=== PATIENT | male | born 1950 | race Caucasian/White ===

== ENCOUNTER 2021-04-05 13:23 | Emergency (ER) | payer OTHER, SELFPAY ==
--- NOTE | 2021-04-05 13:55 | PC.NURSE ---
Pt. pul ox 99% on RA, RR 40, started on 2L by nasal cannula. Pt. coached to slow RR, provided reassurance and information of POC. Pt. HR went from 130s to 110.
[2021-04-05 13:59] VITALS: BP 163/94; PULSE 130; RESP 33; TEMP 36.6; O2SAT 99
[2021-04-05 14:03] VITALS: PULSE 125
--- NOTE | 2021-04-05 14:09 | ED.SOB ---
HPI - SOB/Dyspnea General Chief Complaint: Unspecified Stated Complaint: breathing fast Time Seen by Provider: 04/05/21 13:46 History of Present Illness HPI Narrative: 71 yo male presents to the ED for breathing fast. He says that he was concerned because he was breathing to fast. He demnstrates by sucking air in through his nose rapidly. He says that this has stopped and he feels great. He notes that his heart is beating fast, but says that it always is and that's just him. He is feeling better and eager fr discharge. He denies and CP, SOB, fever, cough, congestion. Related Data Home Medications Medication Instructions Recorded Confirmed No Home Medications 04/05/21 04/05/21 Allergies Allergy/AdvReac Type Severity Reaction Status Date / Time No Known Allergies Allergy Verified 04/05/21 14:02 Review of Systems Review of Systems: All systems reviewed & are unremarkable except as noted in HPI and below Constitutional: Constitutional: Denies chills, Denies fever(s) and Denies weakness ENT: Denies nasal congestion Cardiovascular: Cardiovascular: Denies chest pain Respiratory: Respiratory: Denies dyspnea Gastrointestinal: Gastrointestinal: Reports no additional gastrointestinal complaints Genitourinary: Genitourinary: Reports no additional male genitourinary complaints Neurologic: Reports system reviewed and no additional complaints, except as documented [facility] Past Medical History Medical History (Updated 04/05/21 @ 17:11 by Abhay Somers MD) Essential hypertension Family History Family History (Updated 06/22/16 @ 23:19 by DOCTOR UNKNOWN) Mother Family history of malignant neoplasm of breast in first degree relative Social History Social History Smoking status: Light tobacco smoker Second hand tobacco smoke exposure: No Alcohol intake: current Gender identity (if verbalized by the patient): Male Exam Const: General: healthy appearing, no acute distress and alert Orientation/consciousness: patient oriented x3 HENMT: Head: normal to inspection Neck: Neck: normal visual inspection Chest: Chest palpation & inspection: no tenderness Resp: Effort & Inspection: normal respiratory effort Auscultation: clear to auscultation bilaterally, no rales, no rhonchi and no wheezes Cardio: Jugular venous distension: no JVD Rate: tachycardic Rhythm: regular rhythm Heart sounds: no murmurs GI: Inspection: non-distended GI Palp: Yes Soft to palpation and No Tenderness to palpation present (GI) Skin: General skin exam: normal color Neuro: General: patient oriented x3, moves all extremities, no focal motor deficits and CN's II-XI intact bilaterally Speech: normal speech Gait exam (Neuro): Normal gait present Extrem: General: normal to inspection and no edema Psych: Appearance: well kempt Affect: Anxious affect present Course Vital Signs Vital signs: Vital Signs Temperature 36.6 C 04/05/21 13:59 Pulse Rate 130 H 04/05/21 13:59 Respiratory Rate 33 H 04/05/21 13:59 Blood Pressure 163/94 H 04/05/21 13:59 Pulse Oximetry 99 04/05/21 13:59 Temperature 36.6 C 04/05/21 13:59 Pulse Rate 120 H 04/05/21 14:16 Respiratory Rate 18 04/05/21 14:16 Blood Pressure 166/91 H 04/05/21 14:16 Pulse Oximetry 98 04/05/21 14:16 MDM - SOB/Dyspnea MDM Narrative Medical decision making narrative: It is very difficult to figure out exactly what his complaint is, but he reports that it has completely resolved and there is nothing else that he would like evaluated. Medical Records Attestation: I reviewed the patient's medical records. Discharge Plan Discharge Clinical Impression: Tachypnea Patient Disposition: Home, Self-Care Condition: Stable Instructions: Dyspnea (ED) Prescriptions: No Action No Home Medications RF: 0 Follow-up/Referrals: PHYSICIAN NOT ON STAFF,NONSTAFF [Primary Care Provider] -
[2021-04-05 14:16] VITALS: BP 166/91; PULSE 120; RESP 18; O2SAT 98
--- NOTE | 2021-04-05 15:57 | ECG_ITS ---
Measurements Intervals [place] Rate: 125 P: 61 [place]: 147 QRS: 55 QRSD: 82 T: 47 QT: 280 QTc: 404 Interpretive Statements SINUS TACHYCARDIA MINIMAL Q WAVES- INFERIOR LEADS ABNORMAL ECG Electronically Signed On 04-05-2021 16:12:38 CDT by Shaan Taylor D.O.
== END 2021-04-05 14:18 | disposition home or self-care (01) ==
PROVIDERS: Emergency Provider Emergency Medicine
DX: R06.82 Tachypnea, not elsewhere classified (principal)
CPT/HCPCS: 93005; 99283

== ENCOUNTER 2021-08-14 13:54 | Emergency (ER) | payer OTHER, SELFPAY ==
--- NOTE | ~2021-08-14 | XR_ITS ---
XR chest 1V portable 08/14/2021 16:58 Indication: Dyspnea. Hypertension. Procedure: AP portable chest Comparison: No prior studies for comparison. Findings: Bibasilar atelectasis. Heart size normal. No focal pneumonia, edema, pleural effusion or pn eumothorax. Impression: 1: Bibasilar atelectasis. Reviewed, dictated and finalized at location A. Impression: 1: Bibasilar atelectasis.
[2021-08-14 14:00] VITALS: BP 130/75; PULSE 112; RESP 26; TEMP 36.8; O2SAT 96
[2021-08-14 15:54] VITALS: BP 182/89; PULSE 98; O2SAT 96
--- NOTE | 2021-08-14 16:46 | ECG_ITS ---
Measurements Intervals [place] Rate: 73 P: 50 VT: 157 QRS: 46 QRSD: 81 T: 34 QT: 358 QTc: 395 Interpretive Statements SINUS RHYTHM NORMAL ECG Electronically Signed On 08-14-2021 20:08:21 CDT by Shaan Taylor D.O.
[2021-08-14 16:50] VITALS: PULSE 82
[2021-08-14] MEDS: ASPIRIN 81 MG CHEWABLE TABLET 324 MG PO (17:09)
[2021-08-14] MEDS: LORazepam INJ (*CRX) 2 MG/ML VIAL 0.5 MG IV PUSH (17:09)
[2021-08-14 17:31] LABS: Basophils Absolute Auto 0.1 K/mm3 (0.0-0.1); Basophils Percent Auto 0.4 % (0.2-1.2); Eosinophils Absolute Auto 0.2 K/mm3 (0-0.3); Eosinophils Percent Auto 1.6 % (0-4.4); Hematocrit 48.2 % (42.0-52.0); Hemoglobin 16.2 g/dL (14.0-18.0); Immature Granulocyte Percent A 0.9 % (0-0.5); Lymphocytes Absolute Auto 1.63 K/mm3 (0.9-3.2); Lymphocytes Percent Auto 14.5 % (18.3-44.2); Mean Corpuscular HGB Conc 33.6 g/dl (32-36); Mean Corpuscular Hemoglobin 30.9 pg (26-34); Mean Platelet Volume 9.7 fl (7.4-10.4); Monocytes Absolute Auto 1.1 K/mm3 (0.1-0.6); Monocytes Percent Auto 10.1 % (2.6-8.5); Neutrophils Absolute Auto 8.2 K/mm3 (1.3-6.7); Neutrophils Percent Auto 72.5 % (45.5-73.1); Platelet Count Result 218 k/mm3 (150-375); Red Blood Count 5.24 M/mm3 (4.6-6.20); Red Cell Distribution Width 13.4 % (11.5-14.5); White Blood Count 11.3 K/mm3 (4.5-10.0)
[2021-08-14 17:32] VITALS: BP 172/94; PULSE 82; RESP 28; O2SAT 97
[2021-08-14 17:40] LABS: INR 0.9; Prothrombin Time 11.6 Seconds (11.1-14.7)
[2021-08-14 17:52] LABS: Troponin I < 0.012 ng/mL (0.000-0.034)
[2021-08-14 18:02] VITALS: BP 181/90; PULSE 78; RESP 17; O2SAT 96
[2021-08-14 18:32] VITALS: BP 178/93; PULSE 76; RESP 22; O2SAT 97
--- NOTE | 2021-08-14 18:50 | PC.NURSE ---
PT WENT OVER TO NEIGHBOR PT'S SIDE OF THE ROOM AND BEGAN SPEAKING TO THE PT. HE THEN PULLED OUT HIS OWN IV AND BLOOD WAS DRIPPING ALL OVER THE FLOOR. PT THEN BEGAN TO DUNK HIS HANDS INTO THE HOPPER. I INFORMED THE PT THAT HE NEEDED TO USE A PROPER SINK AND NOT A PLACE WHERE WE DUMP BEDPANS. PT THOROUGHLY WASHED HANDS WITH SOAP AND WATER. DRESSING APPLIED TO FORMER IV SITE
[2021-08-14 19:27] LABS: Alanine Aminotransferase 42 U/L (4-50); Albumin Level 4.9 g/dL (3.5-5.1); Alkaline Phosphatase 91 U/L (38-126); Anion Gap 14 mmol/L (8-16); Aspartate Amino Transferase 42 U/L (17-59); Bilirubin,Total 0.5 mg/dL (0.2-1.3); Blood Urea Nitrogen 19 mg/dL (9-20); Calcium 9.2 mg/dL (8.4-10.2); Carbon Dioxide 22 mmol/L (22-30); Chloride 102 mmol/L (98-107); Estimated CRCL calculation 63 ml/min; Estimated Glomerular Filt Rate > 60; Glucose 100 mg/dL (65-110); Potassium 4.3 mmol/L (3.4-5.0); Sodium 138 mmol/L (137-145)
--- NOTE | 2021-08-14 19:37 | ED.GENADULT ---
HPI - General Adult General Chief complaint: Shortness of Breath/Dyspnea Stated complaint: SOB x 2 days Time Seen by Provider: 08/14/21 16:28 History of Present Illness HPI narrative: Patient is a 71-year-old gentleman who presents the emergency department with chief complaint of breathing heavy. Patient states that over the last several days he has noticed that his nose feels a little congested and reports that he has been taking deep breaths. Patient states that whenever he starts thinking about it he breathes harder patient denies fever denies chills denies cough. Patient states that he has no chest pain with this reports symptoms or not improved by anything or they worsened by anything Related Data Home Medications Medication Instructions Recorded Confirmed lisinopril 08/14/21 08/14/21 metoprolol succinate PO 08/14/21 sertraline mg 08/14/21 trazodone 08/14/21 Allergies Allergy/AdvReac Type Severity Reaction Status Date / Time No Known Allergies Allergy Verified 08/14/21 16:38 Review of Systems Review of Systems: A 10 system review of systems was completed on the patient and is negative except for what is stated in the HPI. Nursing and ancillary documentation was reviewed. [facility] Past Medical History Medical History Essential hypertension Family History Family History Mother Family history of malignant neoplasm of breast in first degree relative Social History Social History Smoking status: Light tobacco smoker Second hand tobacco smoke exposure: No Alcohol intake: current Gender identity (if verbalized by the patient): Male Exam Narrative: GENERAL: Well-appearing, well-nourished, and in no acute distress. HEAD: Normocephalic, atraumatic. EYES: PERRLA and EOMI. ENT: Nares clear, no rhinorrhea or epistaxis. Mucous membranes moist. NECK: Supple. CHEST: Clear to auscultation. No respiratory distress. HEART: Regular rate and rhythm. No murmur heard. Normal peripheral pulses. ABDOMEN: Soft, nontender, nondistended, normal active bowel sounds. EXTREMITIES: Normal range of motion. No edema. SKIN: Warm, dry, no rash. NEURO: No focal deficits. Alert and oriented x3. PSYCH: Normal mood and affect. Course Vital Signs Vital signs: Vital Signs Temperature 36.8 C 08/14/21 14:00 Pulse Rate 112 H 08/14/21 14:00 Respiratory Rate 26 H 08/14/21 14:00 Blood Pressure 130/75 08/14/21 14:00 Pulse Oximetry 96 08/14/21 14:00 Temperature 36.8 C 08/14/21 14:00 Pulse Rate 76 08/14/21 18:32 Respiratory Rate 22 H 08/14/21 18:32 Blood Pressure 178/93 H 08/14/21 18:32 Pulse Oximetry 97 08/14/21 18:32 Medical Decision Making Vital Signs Vital Signs: Vital Signs Temperature 36.8 C 08/14/21 14:00 Pulse Rate 112 H 08/14/21 14:00 Respiratory Rate 26 H 08/14/21 14:00 Blood Pressure 130/75 08/14/21 14:00 Pulse Oximetry 96 08/14/21 14:00 Temperature 36.8 C 08/14/21 14:00 Pulse Rate 76 08/14/21 18:32 Respiratory Rate 22 H 08/14/21 18:32 Blood Pressure 178/93 H 08/14/21 18:32 Pulse Oximetry 97 08/14/21 18:32 Lab Data Result diagrams: 08/14/21 17:07 08/14/21 17:07 Labs: Lab Results 08/14/21 08/14/21 08/14/21 Range/Units 17:07 17:07 17:07 WBC 11.3 H (4.5-10.0) K/mm3 RBC 5.24 (4.6-6.20) M/mm3 Hgb 16.2 (14.0-18.0) g/dL Hct 48.2 (42.0-52.0) % MCV 92.0 (80-100) fl MCH 30.9 (26-34) pg MCHC 33.6 (32-36) g/dl RDW 13.4 (11.5-14.5) % Plt Count 218 (150-375) k/mm3 MPV 9.7 (7.4-10.4) fl Immature Gran % (Auto) 0.9 H (0-0.5) % Neut % (Auto) 72.5 (45.5-73.1) % Lymph % (Auto) 14.5 L (18.3-44.2) % [place] % (Auto) 10.1 H (2.6-8.5) % Eos % (Auto) 1.6 (0-4.4)
== END 2021-08-14 19:38 | disposition left against medical advice (07) ==
PROVIDERS: Emergency Provider Emergency Medicine
DX: R06.00 Dyspnea, unspecified (principal); I10 Essential (primary) hypertension; F17.200 Nicotine dependence, unspecified, uncomplicated
CPT/HCPCS: 36415; 71045; 80053; 84484; 85025; 85610; 85730; 93005; 96374; 99284; A9270; J2060

== ENCOUNTER 2022-07-02 14:55 | Emergency (ER) | payer OTHER, SELFPAY ==
[2022-07-02] VITALS (10 sets, daily range): BP systolic 142–165; BP diastolic 68–101; PULSE 72–104; RESP 15–29; TEMP 37; O2SAT 96–100
--- NOTE | 2022-07-02 15:07 | ECG_ITS ---
Measurements Intervals [place] Rate: 102 P: 53 [place]: 148 QRS: 38 QRSD: 86 T: 25 QT: 313 QTc: 409 Interpretive Statements SINUS TACHYCARDIA MINOR NONSPECIFIC ST CHANGES COMPARED TO ECG 08/14/2021 17:47:29 SINUS TACHYCARDIA NOW PRESENT Electronically Signed On 07-03-2022 16:24:26 CDT by Lynette Antunez M.D.
[2022-07-02 15:16] LABS: Glucose Point of Care 109 mg/dl (65-105)
--- NOTE | 2022-07-02 15:26 | PC.NURSE ---
patient attempted to straight cath and did not tolerate procedure at this time. patient yelling and fighting with staff about the straight cath. Patient reports that he might be able to use urinal at this time.
[2022-07-02 15:30] LABS: Basophils Percent Auto 0.4 % (0.2-1.2); Eosinophils Absolute Auto 0.4 K/mm3 (0-0.3); Eosinophils Percent Auto 3.8 % (0-4.4); Hematocrit 44.6 % (42.0-52.0); Hemoglobin 14.7 g/dL (14.0-18.0); Immature Granulocyte Absolute 0.02 K/mm3 (0.00-0.031); Immature Granulocyte Percent A 0.2 % (0-0.5); Lymphocytes Absolute Auto 2.24 K/mm3 (0.9-3.2); Lymphocytes Percent Auto 23.6 % (18.3-44.2); Mean Corpuscular Hemoglobin 30.6 pg (26-34); Mean Corpuscular Volume 92.7 fl (80-100); Mean Platelet Volume 9.7 fl (7.4-10.4); Monocytes Absolute Auto 0.9 K/mm3 (0.1-0.6); Monocytes Percent Auto 9.1 % (2.6-8.5); Neutrophils Percent Auto 62.9 % (45.5-73.1); Platelet Count Result 191 k/mm3 (150-375); Red Blood Count 4.81 M/mm3 (4.6-6.20); Red Cell Distribution Width 13.2 % (11.5-14.5); White Blood Count 9.5 K/mm3 (4.5-10.0)
[2022-07-02 15:40] LABS: Lactic Acid Reflex 1.2 mmol/L (0.7-2.0)
[2022-07-02 15:42] LABS: Alanine Aminotransferase 35 U/L (6-50); Albumin Level 4.6 g/dL (3.5-5.1); Alkaline Phosphatase 92 U/L (38-126); Anion Gap 13 mmol/L (8-16); Aspartate Amino Transferase 35 U/L (17-59); Bilirubin,Total 0.3 mg/dL (0.2-1.3); Blood Urea Nitrogen 23 mg/dL (9-20); Calcium 8.7 mg/dL (8.4-10.2); Carbon Dioxide 22 mmol/L (22-30); Chloride 102 mmol/L (98-107); Estimated Glomerular Filt Rate > 60; Glucose 109 mg/dL (65-110); Potassium 3.7 mmol/L (3.4-5.0); Sodium 137 mmol/L (137-145)
[2022-07-02 15:46] LABS: Partial Thromboplastin Time 24.8 SECONDS (22.3-36.8); Prothrombin Time 13.1 Seconds (11.1-14.7)
--- NOTE | 2022-07-02 16:18 | ED.GENADULT ---
HPI - General Adult General Chief complaint: Altered Mental Status <Bob Farmer MD - Last Filed: 07/02/22 21:11> Stated complaint: involuntary psych <Bob Farmer MD - Last Filed: 07/02/22 21:11> Time Seen by Provider: 07/02/22 15:36 <Bob Farmer MD - Last Filed: 07/02/22 21:11> History of Present Illness HPI narrative: Patient is a 72-year-old male who is brought into the ER for a mental health evaluation. Patient has had multiple run-ins with the police due to his mental health. Apparently today he was wandering naked in his yard. It has been reported that there is no AC in his home and that there is minimal food. Patient's brother reports that the patient has schizophrenia and possibly dementia. He has been applying for guardianship through the state but has not heard anything yet. Patient has no medical complaints at this time. Patient knows he was brought here by the police but does not recall the events leading up to being here. <Bob Farmer MD - Last Filed: 07/02/22 21:11> Related Data Home medications: Home Medications Medication Instructions Recorded Confirmed lisinopril 10 mg tablet 08/14/21 08/14/21 metoprolol succinate 50 mg PO 08/14/21 tablet,extended release 24 hr sertraline 100 mg tablet mg 08/14/21 trazodone 100 mg tablet 08/14/21 <Bob Farmer MD - Last Filed: 07/02/22 21:11> Allergies/adverse reactions: Allergies Allergy/AdvReac Type Severity Reaction Status Date / Time No Known Allergies Allergy Verified 08/14/21 16:38 <Bob Farmer MD - Last Filed: 07/02/22 21:11> Review of Systems Review of Systems: All systems reviewed & are unremarkable except as noted in HPI and below <Bob Farmer MD - Last Filed: 07/02/22 21:11> Constitutional: Constitutional: Denies chills, Denies fatigue and Denies fever(s) <Bob Farmer MD - Last Filed: 07/02/22 21:11> ENT: Denies nasal congestion and Denies sore throat <Bob Farmer MD - Last Filed: 07/02/22 21:11> Cardiovascular: Cardiovascular: Denies chest pain, Denies rapid heart rate and Denies radiating jaw, neck or arm pain <Bob Farmer MD - Last Filed: 07/02/22 21:11> Respiratory: Respiratory: Denies cough and Denies dyspnea <Bob Farmer MD - Last Filed: 07/02/22 21:11> Gastrointestinal: Gastrointestinal: Denies abdominal pain, Denies nausea and Denies vomiting <Bob Farmer MD - Last Filed: 07/02/22 21:11> Psychiatric: Psychiatric: Denies anxiety and Denies depression <Bob Farmer MD - Last Filed: 07/02/22 21:11> PMFSH Past Medical History Medical History: Medical History (Updated 07/03/22 @ 05:12 by Eleuterio Ovalle MD) Depression, major, recurrent, in complete remission Essential hypertension Neuropathy Schizophrenia <Bob Farmer MD - Last Filed: 07/02/22 21:11> Surgical History Surgical History: Surgical History (Updated 07/02/22 @ 21:10 by Bob Farmer MD) Surgical history unknown <Bob Farmer MD - Last Filed: 07/02/22 21:11> Family History Family History: Family History Mother Family history of malignant neoplasm of breast in first degree relative <Bob Farmer MD - Last Filed: 07/02/22 21:11> Social History Social History: Social History Smoking status: Light tobacco smoker Second hand tobacco smoke exposure: No Alcohol intake: current Substance use type: does not use Gender identity (if verbalized by the patient): Male <Bob Farmer MD - Last Filed: 07/02/22 21:11> Exam Narrative: GENERAL: Well-appearing, well-nourished, and in no acute distress. HEAD: Normocephalic, atraumatic. EYES: PERRL and EOMI. ENT: Mucous membranes moist. CHEST: Clear to auscultation. No respiratory distress. HEART: Regular
--- NOTE | 2022-07-02 16:23 | PC.NURSE ---
called lab @[id number] to add on Ethanol and TSH -[place]
[2022-07-02] MEDS: SODIUM CHLORIDE 0.9% IV 1,000 ML 999 ML IV CONT (16:24)
[2022-07-02 16:36] LABS: Ethanol < 10 mg/dL (<10)
--- NOTE | 2022-07-02 17:26 | PC.NURSE ---
Patient refusing straight cath and informed that we need a urine sample within 30min. EDP aware.
--- NOTE | 2022-07-02 18:15 | PC.NURSE ---
Patient found in the room getting out of bed and attmepting to leave facility, patient ripped out IV without anyone in the room.
[2022-07-02 18:21] LABS: Appearance Urine Clear (Clear); Bilirubin Urine Negative (Negative); Blood Urine Negative (Negative); Color Urine Yellow (Yellow); Glucose Urine UA Negative (Negative); Ketones Urine Trace mg/dL (Negative); Leukocyte Esterase Ur Negative LEU/UL (Negative); Nitrate Urine Negative (Negative); Protein Urine Negative (Negative); Urobilinogen Urine 0.2 mg/dL (<2.0)
[2022-07-02 18:25] LABS: Mucus Urine Rare /lpf; RBC Urine 0-2 /hpf (0-2); WBC Urine 0-3 /hpf
[2022-07-02 18:33] LABS: Add Urine Microscopic? NO
[2022-07-02 18:35] LABS: Amphetamine Screen Urine Negative (Negative); Barbiturate Screen Urine Negative (Negative); Benzodiazepines Screen Urine Negative (Negative); Cannabinoid Screen Urine Negative (Negative); Cocaine Screen Urine Negative (Negative); Methadone Screen Urine Negative (Negative); Opiate Screen Urine Negative (Negative); Phencyclidine Screen Urine Negative (Negative)
--- NOTE | 2022-07-02 19:34 | PC.NURSE ---
Assumed care of pt at this time. Pt alert and upright on stretcher, updated on POC.
[2022-07-02 19:41] LABS: SARS-CoV-2 RNA PCR Negative
--- NOTE | 2022-07-02 19:45 | PC.NURSE ---
Addendum entered by Nicky Mars RN 07/02/22 20:58: 2105 - Per crisis, pt having outbursts when attempting to evaluate pt. Security on standby outside pts room. Original Note: Crisis arrived to evaluate pt
--- NOTE | 2022-07-02 20:57 | PC.NURSE ---
Pt calm and cooperative. Able to ambulate to use restroom. No request at this time.
--- NOTE | 2022-07-02 21:31 | PC.NURSE ---
Sitter at bedside for elopement risk per EDP
--- NOTE | 2022-07-02 21:56 | PC.NURSE ---
Spoke with Ila from [facility] requesting patient triage information. Chart faxed to at this time
--- NOTE | 2022-07-02 22:58 | PC.NURSE ---
Received call from Ila at [facility]. No beds at this time.
--- NOTE | 2022-07-03 00:39 | PC.NURSE ---
Received call from Alexey at [facility] will accept pt. Admitting physician: Aracely Will call back with bed assignment.
[2022-07-03 00:40] VITALS: PULSE 59; RESP 14; O2SAT 99
[2022-07-03 01:23] VITALS: BP 160/94
--- NOTE | 2022-07-03 02:52 | PC.NURSE ---
[facility] bed# 5114-B at [facility].
[2022-07-03] MEDS: lisinopriL 10 MG TABLET PO (03:17)
[2022-07-03 03:18] VITALS: BP 162/87; PULSE 87; RESP 18; O2SAT 98
[2022-07-03 04:11] VITALS: BP 145/71; PULSE 72; RESP 18; O2SAT 100
--- NOTE | 2022-07-03 04:32 | PC.NURSE ---
[facility] here
== END 2022-07-03 04:48 ==
PROVIDERS: Emergency Provider Emergency Medicine
DX: F91.9 Conduct disorder, unspecified (principal); Z20.822 Contact with and (suspected) exposure to COVID-19; F33.40 Major depressive disorder, recurrent, in remission, unspecified; I10 Essential (primary) hypertension; F20.9 Schizophrenia, unspecified; G62.9 Polyneuropathy, unspecified; F17.200 Nicotine dependence, unspecified, uncomplicated; Z79.899 Other long term (current) drug therapy; R00.0 Tachycardia, unspecified
CPT/HCPCS: 36415; 80053; 80307; 81003; 82948; 83605; 84443; 85025; 85610; 85730; 93005; 96360; 99285; A9270; C9803; J7030; U0003; U0005